=== PATIENT | male | born 1960 | race Caucasian/White ===

== ENCOUNTER 2021-03-28 14:37 | Emergency (ER) | payer OTHER ==
[2021-03-28 16:06] LABS: BASOPHIL 1.3 % (0-2); EOSINOPHIL 3.9 % (0-5); HCT 41.6 % (42.0-52.0); LYMPHOCYTE 28.6 % (15-48); MCH 29.1 pg (25.0-31.0); MCHC 33.7 g/dL (32.0-36.0); MCV 86.5 fL (78.0-100.0); MONOCYTE 8.8 % (0-12); MPV 9.6 fL (6.0-9.5); NEUTROPHIL 56.4 % (41-80); NRBC 0; PLT 196 K/uL (150-400); RBC 4.81 M/uL (4.70-6.00); RDW 12.6 % (11.5-14.0); WBC 6.7 K/uL (4.0-10.5)
[2021-03-28] MEDS ORDERED: CEPHALEXIN250 MG PO (17:05)
== END 2021-03-28 17:19 | disposition home or self-care (01) ==
LOC: FER 14:37
PROVIDERS: Emergency Medicine
DX: S01.01XA Laceration without foreign body of scalp, initial encounter (principal); Z23 Encounter for immunization; W17.89XA Other fall from one level to another, initial encounter; W22.8XXA Striking against or struck by other objects, initial encounter; Y92.69 Other specified industrial and construction area as the place of occurrence of the external cause; Y99.0 Civilian activity done for income or pay
CPT/HCPCS: 36415; 70450; 72125; 72131; 85025; 90471; 90715